=== PATIENT | female | born 1935 | race Caucasian/White ===

== ENCOUNTER 2021-11-22 12:05 | Emergency (ER) | payer MEDICARE, BC | END 2021-11-22 14:01 | disposition home or self-care (01) | LOC: JP.ED 12:05 | DX: S00.83XA Contusion of other part of head, initial encounter (principal); S50.01XA Contusion of right elbow, initial encounter; I10 Essential (primary) hypertension; Z88.8 Allergy status to other drugs, medicaments and biological substances; Z88.2 Allergy status to sulfonamides; Z79.899 Other long term (current) drug therapy; Z86.16 Personal history of COVID-19; Z90.49 Acquired absence of other specified parts of digestive tract; Z90.710 Acquired absence of both cervix and uterus; W18.39XA Other fall on same level, initial encounter | CPT/HCPCS: 73080-26-RT; 73080-RT; 99283 ==